=== PATIENT | female | born 1975 | race Caucasian/White ===

== ENCOUNTER 2016-11-14 14:27 | Emergency (ER) | payer MEDICAID ==
[2016-11-14 14:45] VITALS: BP 128/84
--- NOTE | 2016-11-14 15:00 | EDM.PDOC ---
ED HPI GENERAL MEDICAL PROBLEM - General Chief Complaint: Lower Extremity Injury/Pain Stated Complaint: LEFT UPPER LEG Time Seen by Provider: 11/14/16 14:54 Source of Information: Reports: Patient History Limitations: Reports: No Limitations - History of Present Illness INITIAL COMMENTS - FREE TEXT/NARRATIVE: 41 yo White Female c/o left side thigh numbness and pain in left groin and hip area for three days. Pt. reports tat the numbness does not go pass the knee. Pt. denies ay trauma Onset Date: 11/11/16 Onset Time: 12:00 Duration: Day(s): Location: Reports: Lower Extremity, Left Quality: Reports: Burning Severity: Moderate Improves with: Reports: None Worsens with: Reports: Movement Associated Symptoms: Reports: No Other Symptoms Left Hip Pain Score (Numeric/FACES): 9 - Related Data Allergies Allergy/AdvReac Type Severity Reaction Status Date / Time amoxicillin Allergy Cannot Verified 11/14/16 14:42 Remember Home Meds: Home Meds Levothyroxine [Synthroid] 100 mcg PO DAILY 11/14/16 [History] Social & Family History - Tobacco Use Smoking Status *Q: Current Every Day Smoker Years of Tobacco use: 20 Packs/Tins Daily: 0.2 - Recreational Drug Use Recreational Drug Use: No Review of Systems - Review of Systems Review Of Systems: See Below Constitutional: Reports: No Symptoms Eyes: Reports: No Symptoms Ears: Reports: No Symptoms Nose: Reports: No Symptoms Mouth/Throat: Reports: No Symptoms Respiratory: Reports: No Symptoms Cardiovascular: Reports: No Symptoms GI/Abdominal: Reports: No Symptoms Genitourinary: Reports: No Symptoms Musculoskeletal: Reports: Other (left side groin,hip and thigh) Skin: Reports: No Symptoms Neurological: Reports: Tingling (left thigh) Psychiatric: Reports: No Symptoms ED EXAM, GENERAL - Physical Exam Exam: See Below Exam Limited By: No Limitations General Appearance: Alert, WD/WN, No Apparent Distress Eye Exam: Bilateral Eye: EOMI, PERRL Ears: Normal External Exam Nose: Normal Inspection Throat/Mouth: Normal Inspection Head: Atraumatic Neck: Normal Inspection Respiratory/Chest: No Respiratory Distress, Lungs Clear Cardiovascular: Normal Peripheral Pulses Peripheral Pulses: 2+: Femoral (L), Femoral (R), Dorsalis Pedis (L), Dorsalis Pedis (R) GI/Abdominal: Normal Bowel Sounds, Soft Back Exam: Normal Inspection, Full Range of Motion Extremities: Normal Inspection, Limited Range of Motion (left lower extremity) Neurological: Alert, Oriented, CN II-XII Intact, Sensory/Motor Deficit (left lower extremity) Psychiatric: Normal Affect Skin Exam: Warm, Dry, Intact Lymphatic: No Adenopathy Course - Vital Signs Last Recorded V/S: Last Vital Signs Temp 36.2 C 11/14/16 14:43 Pulse 107 H 11/14/16 14:43 Resp 16 11/14/16 14:43 BP 128/84 11/14/16 14:43 Pulse Ox 99 11/14/16 14:43 Departure - Departure Time of Disposition: 15:56 Disposition: Home, Self-Care 01 Condition: Good Clinical Impression: DDD (degenerative disc disease), lumbosacral - Discharge Information Forms: ED Department Discharge Additional Instructions: Rest Take the Medications as directed: Neurontin 300mg TID # 30 Ibuprofen 600mg TID # 30 F/U w/ PCP and schedule Lumbar MRI
--- NOTE | 2016-11-14 15:38 | CT ---
CLINICAL HISTORY: 41-year-old 180 pound female smoker with "pain and numbness left side" (2 days). No known trauma. SCAN TECHNIQUE: Volume acquisition of data from an emergency unenhanced CT scan of the lumbosacral sp ine obtained with the patient lying supine on the Siemens multislice CT scanner [place], [place]. All data archived in the PACS system for storage, reformatting and study. INTERPRETATION: Abnormal. 1. Signs of chronic mid lumbar disc disease at the L3-4 level, i.e., interspace narrowing, endplate s clerosis, gas in the nucleus pulposus and hypertrophic marginal spondylosis. 2. Homogeneous normal density without sign of pathologic skeletal lesion, lumbar fracture or spondylo listhesis. 3. Suggestion of some disc and osteophyte formation posteriorly at the L 3-4 level and subligamentous soft tissue disc protruding posteriorly at the lowest L5-S1 level. 4. Mild reactive sclerosis facet joints L3-40 4-5 and L5-S1 levels bilaterally. 5. Symmetric spacing normal-appearing SI and hip joints. No arthritic degenerative changes. 6. Slight posterior subluxation first coccygeal segment. (Clinical point tenderness?) CONCLUSION: Chronic mid and lower lumbar disc disease. No lumbosacral fractures.
== END 2016-11-14 16:09 | disposition home or self-care (01) ==
LOC: DL.ED 14:27
DX: M51.37 Other intervertebral disc degeneration, lumbosacral region (principal); F17.210 Nicotine dependence, cigarettes, uncomplicated; Z79.899 Other long term (current) drug therapy; Z88.1 Allergy status to other antibiotic agents
CPT/HCPCS: 72131; 99283

== ENCOUNTER 2016-11-18 09:09 | Emergency (ER) | payer MEDICAID ==
[2016-11-18 09:25] VITALS: BP 139/87
--- NOTE | 2016-11-18 09:26 | EDM.PDOC ---
ED HPI GENERAL MEDICAL PROBLEM - General Chief Complaint: General Stated Complaint: [id number] LEFT LEG Time Seen by Provider: 11/18/16 09:25 Source of Information: Reports: Patient History Limitations: Reports: No Limitations - History of Present Illness INITIAL COMMENTS - FREE TEXT/NARRATIVE: 41 yo white female c/o of left groin pain. Pt. denies any trauma Onset Date: 11/15/16 Onset Time: 12:00 Duration: Day(s): Location: Reports: Other (left groin) Quality: Reports: Ache Severity: Moderate Improves with: Reports: None Worsens with: Reports: None Associated Symptoms: Reports: No Other Symptoms Left Groin Pain Score (Numeric/FACES): 9 - Related Data Allergies Allergy/AdvReac Type Severity Reaction Status Date / Time amoxicillin Allergy Cannot Verified 11/14/16 14:42 Remember Home Meds: Home Meds Levothyroxine [Synthroid] 100 mcg PO DAILY 11/14/16 [History] Past Medical History Endocrine/Metabolic History: Reports: Hypothyroidism Social & Family History - Tobacco Use Smoking Status *Q: Current Every Day Smoker Years of Tobacco use: 20 Packs/Tins Daily: 0.2 - Recreational Drug Use Recreational Drug Use: No ED ROS GENERAL - Review of Systems Review Of Systems: See Below Constitutional: Reports: No Symptoms HEENT: Reports: No Symptoms Respiratory: Reports: No Symptoms Cardiovascular: Reports: No Symptoms Endocrine: Reports: No Symptoms GI/Abdominal: Reports: No Symptoms : Reports: No Symptoms Musculoskeletal: Reports: Other (left groin) Skin: Reports: No Symptoms Neurological: Reports: No Symptoms Psychiatric: Reports: No Symptoms Hematologic/Lymphatic: Reports: No Symptoms Immunologic: Reports: No Symptoms ED EXAM, GENERAL - Physical Exam Exam: See Below Exam Limited By: No Limitations General Appearance: Alert, WD/WN, No Apparent Distress Head: Atraumatic Neck: Normal Inspection Respiratory/Chest: No Respiratory Distress, Lungs Clear Cardiovascular: Normal Peripheral Pulses Peripheral Pulses: 2+: Femoral (L), Femoral (R) GI/Abdominal: Normal Bowel Sounds Back Exam: Normal Inspection Extremities: Normal Inspection, Other (left groin tenderness) Neurological: Alert, Oriented, CN II-XII Intact Psychiatric: Normal Affect Skin Exam: Warm Lymphatic: No Adenopathy Course - Vital Signs Last Recorded V/S: Last Vital Signs Temp 35.9 C 11/18/16 09:24 Pulse 104 H 11/18/16 09:24 Resp 20 11/18/16 09:24 BP 139/87 11/18/16 09:24 Pulse Ox 100 11/18/16 09:24 Departure - Departure Time of Disposition: 09:44 Disposition: Home, Self-Care 01 Condition: Good Clinical Impression: Ilio-inguinal strain Qualifiers: Encounter type: subsequent encounter Qualified Code(s): S39.011D - Strain of muscle, fascia and tendon of abdomen, subsequent encounter - Discharge Information Forms: ED Department Discharge Additional Instructions: Rest and Continue with present medication F/U w/ PCP
[2016-11-18] MEDS ORDERED: Ketorolac 30 MG/ML SDV IM ONE (09:40)
== END 2016-11-18 10:21 | disposition home or self-care (01) ==
LOC: DL.ED 09:09
DX: S39.011D Strain of muscle, fascia and tendon of abdomen, subsequent encounter (principal); F17.210 Nicotine dependence, cigarettes, uncomplicated; E03.9 Hypothyroidism, unspecified; Z88.1 Allergy status to other antibiotic agents; Z79.899 Other long term (current) drug therapy; X58.XXXD Exposure to other specified factors, subsequent encounter
CPT/HCPCS: 96372; 99283; J1885; J2360

== ENCOUNTER 2016-11-23 17:51 | Emergency (ER) | payer MEDICAID ==
[2016-11-23] MEDS ORDERED: Meclizine 12.5 MG Tab PO ONE (18:10)
--- NOTE | 2016-11-23 18:16 | EDM.PDOC ---
ED HPI GENERAL MEDICAL PROBLEM - General Stated Complaint: hard time breathing [id number] Time Seen by Provider: 11/23/16 18:11 Source of Information: Reports: Patient History Limitations: Reports: No Limitations - History of Present Illness INITIAL COMMENTS - FREE TEXT/NARRATIVE: states was fine yesterday then this AM started light headedness dizziness unsteadiness no chest pain perse but does have some sharp pain left breast area since this AM. feels out of breath when talks. denies recent head trauma. - Related Data Allergies Allergy/AdvReac Type Severity Reaction Status Date / Time amoxicillin Allergy Cannot Verified 11/23/16 18:20 Remember Home Meds: Home Meds Levothyroxine [Synthroid] 200 mcg PO DAILY 11/14/16 [History] Past Medical History Endocrine/Metabolic History: Reports: Hypothyroidism - Past Surgical History HEENT Surgical History: Reports: Tonsillectomy GI Surgical History: Reports: Cholecystectomy Female Surgical History: Reports: Tubal Ligation Social & Family History - Tobacco Use Smoking Status *Q: Current Every Day Smoker Years of Tobacco use: 20 Packs/Tins Daily: 0.2 - Caffeine Use Caffeine Use: Reports: Coffee, Soda - Recreational Drug Use Recreational Drug Use: No ED ROS GENERAL - Review of Systems Review Of Systems: ROS reveals no pertinent complaints other than HPI. ED EXAM, GENERAL - Physical Exam Exam: See Below Exam Limited By: No Limitations General Appearance: Alert, WD/WN, Anxious, Mild Distress Eye Exam: Bilateral Eye: PERRL (pupils ess ER @ 4mm) Ears: Hearing Grossly Normal Throat/Mouth: Normal Voice, No Airway Compromise Head: Atraumatic Neck: Non-Tender, Full Range of Motion Respiratory/Chest: No Respiratory Distress, Lungs Clear, Normal Breath Sounds, No Accessory Muscle Use Cardiovascular: Regular Rate, Rhythm GI/Abdominal: Soft, Non-Tender Neurological: Alert, Oriented, Normal Cognition, Normal Gait, No Motor/Sensory Deficits Psychiatric: Anxious Skin Exam: Warm, Dry, Normal Color Lymphatic: No Adenopathy Course - Vital Signs Last Recorded V/S: Last Vital Signs Temp 35.9 C 11/23/16 17:56 Pulse 93 11/23/16 17:56 Resp 18 11/23/16 19:24 BP 116/61 11/23/16 19:24 Pulse Ox 97 11/23/16 19:24 - Orders/Labs/Meds Labs: Laboratory Tests 11/23/16 11/23/16 11/23/16 Range/Units 18:20 18:20 18:20 WBC 12.0 H (5.0-10.0) 10^3/uL RBC 3.89 L (4.2-5.4) 10^6/uL Hgb 12.5 (12.0-16.0) g/dL Hct 38.2 (37.0-47.0) % MCV 98.2 (80-100) fL MCH 32.1 (27.0-34.0) pg MCHC 32.7 L (33.0-35.0) g/dL Plt Count 291 (150-450) 10^3/uL Neut % (Auto) 67.1 (42.2-75.2) % Lymph % (Auto) 24.5 (20.5-50.1) % [place] % (Auto) 5.8 (2-8) % Eos % (Auto) 2.1 (1.0-3.0) % Baso % (Auto) 0.5 (0.0-1.0) % D-Dimer, Quantitative 242 (0-400) ng/mL Sodium 139 (135-145) mmol/L Potassium 3.8 (3.6-5.0) mmol/L Chloride 102 (101-111) mmol/L Carbon Dioxide 28.0 (21.0-31.0) mmol/L Anion Gap 12.8 BUN 19 H (7-18) mg/dL Creatinine 1.0 (0.6-1.3) mg/dL Est Cr Clr Drug Dosing 55.87 mL/min Estimated GFR (MDRD) > 60 BUN/Creatinine Ratio 19.00 Glucose 124 H (74-105) mg/dL Calcium 9.0 (8.4-10.2) mg/dl Total Bilirubin 1.1 H (0.2-1.0) mg/dL AST 35 (10-42) IU/L ALT 27 (10-60) IU/L Alkaline Phosphatase 50 (42-121) IU/L Troponin I < 0.02 (0.00-0.02) ng/ml Total Protein 7.8 (6.7-8.2) g/dl Albumin 4.4 (3.2-5.5) g/dl Globulin 3.4 Albumin/Globulin Ratio 1.29 Meds: Medications Discontinued Medications Generic Name Dose Route Start Last Admin Trade Name Jose Rafael PRN Reason Stop Dose Admin Meclizine HCl 12.5 mg 11/23/16 18:10 11/23/16 18:29 Antivert PO 11/23/16 18:11 12.5 mg ONETIME ONE Administration - Re-Assessments/Exams Free Text/Narrative Re-Assessment/Exam: 11/23/16 20:16 results discussed with pt who is feeling much better but not 100% Departure - Departure Time of Disposition: 20:18 Disposition: Home, Self-Care 01 Condition: Good Clinical Impression: Dizziness - Discharge Information Forms: ED Department Discharge Additional Instructions: 1) rest and avoid bending lifting straining 2) try MECLIZINE at [facility] 3) follow up with family doctor Saturday 4) recheck if there is any change or concern
[2016-11-23 18:42] LABS: CHLORIDE,CL 102 mmol/L (101-111); SODIUM,NA 139 mmol/L (135-145)
[2016-11-23 20:34] VITALS: BP 128/76
== END 2016-11-23 20:28 | disposition home or self-care (01) ==
LOC: DL.ED 17:51
DX: R42 Dizziness and giddiness (principal); F17.210 Nicotine dependence, cigarettes, uncomplicated; Z88.1 Allergy status to other antibiotic agents
CPT/HCPCS: 36415; 70450; 80053; 84484; 85025; 85379; 99284; A9270